=== PATIENT | female | born 1960 | race Hispanic/Latino ===

== ENCOUNTER 2019-02-05 06:29 | Day surgery (SDC) | payer MEDICAID ==
[~2019-02-05] VITALS: Ht 152.4 cm; Wt 140.6 kg
[2019-02-05] VITALS (7 sets, daily range): BP systolic 98–152; BP diastolic 57–69
[~2019-02-05 06:29] MED LIST: BUPR150SR PO; CALC-190 PO; CELE200C PO; HYDR12.530 PO; LORA-705 PO; METO-391 PO; MULT-1192 PO; SODIUM CHLORIDE 0.9% 1000ML 1,000 ML IV ONE
--- NOTE | 2019-02-05 10:20 | NUR ---
dc pt dc home via wc no distress , accompanied by patients mother, dc instructions reinforced to patient and patients mom. both verbalized understanding
== END 2019-02-05 10:20 | disposition home or self-care (01) ==
LOC: DAH 06:29 → ENDO 06:29
PROVIDERS: ATTEND Internal Medicine
DX: K59.00 Constipation, unspecified (principal); K63.5 Polyp of colon; K21.9 Gastro-esophageal reflux disease without esophagitis; K44.9 Diaphragmatic hernia without obstruction or gangrene; K29.50 Unspecified chronic gastritis without bleeding; E78.5 Hyperlipidemia, unspecified; I10 Essential (primary) hypertension; F41.9 Anxiety disorder, unspecified; F32.9 Major depressive disorder, single episode, unspecified; M19.90 Unspecified osteoarthritis, unspecified site; G47.30 Sleep apnea, unspecified; H54.7 Unspecified visual loss; E66.01 Morbid (severe) obesity due to excess calories; Z90.3 Acquired absence of stomach [part of]; Z86.010 Personal history of colon polyps; Z79.899 Other long term (current) drug therapy; Z90.710 Acquired absence of both cervix and uterus; Z98.890 Other specified postprocedural states; Z80.0 Family history of malignant neoplasm of digestive organs; Z99.89 Dependence on other enabling machines and devices
CPT/HCPCS: 43239; 45380; 45385; A4221; A4222; A4223; A4335; A4606; A4663; J7030